=== PATIENT | female | born 1965 | race Caucasian/White ===

== ENCOUNTER 2017-09-27 03:00 | Emergency (ER) | payer OTHER ==
[~2017-09-27] VITALS: Ht 167.6 cm; Wt 56.7 kg
[~2017-09-27 03:00] MED LIST: CIPRO 250MG250 MG PO
--- NOTE | 2017-09-27 03:01 | ED GI/GU/ABDOMINAL COMPLAINT ---
History of Present Illness General Chief Complaint: Abdominal Pain/Flank Pain Stated Complaint: LEFT SIDED PAIN Source: patient Exam Limitations: no limitations Vital Signs & Intake/Output Vital Signs & Intake/Output Vital Signs Date Time Temp Pulse Resp B/P B/P Pulse O2 O2 Flow FiO2 Mean Ox Delivery Rate 09/27 0528 98.5 79 14 105/59 97 Room Air 09/27 0312 Room Air 09/27 0309 85.0 85 16 158/75 99 Allergies Coded Allergies: MDX - NUTS (NUTS) (UNKNOWN PER PT 02/11/14) MDX - Penicillin (PENICILLIN) (HIVES 02/11/14) MDX - Shellfish (SHELLFISH) ("CAN'T BREATH" 02/11/14) MDX - Tomato (TOMATO) ("SWOLLEN LIPS" 02/11/14) Reconcile Medications Ciprofloxacin (Ciprofloxacin HCl) 250 MG TABLET 1 TAB PO UTI (Reported) Ibuprofen 800 MG TABLET 1 TAB PO TID PRN pain Ondansetron (Zofran Odt) 4 MG TAB.RAPDIS 1 TAB SL TID PRN nausea Oxycodone HCl/Acetaminophen (Percocet 5-325 MG Tablet) 5 MG-325 MG TABLET 1 TAB PO 4XDP PRN PAIN six...[id number] Triage Nurses Notes Reviewed? yes ? y Is pt currently ? No Onset: Abrupt Duration: hour(s): Timing: recent history Quality/Severity: cramping, sharpness Location: left lower quadrant Radiation: back Activities at Onset: none Modifying Factors: Worsens With: vomiting. Associated Symptoms: abdominal pain, nausea/vomiting HPI: 52 yo woman in prior good health presents with left flank pain, nausea, and vomiting, along with an urge to urinate. She notes that she was seen a few days ago and was started on macrobid for symptoms consistent with a urinary tract infection. "They didn't find an infection... they just treated me based on symptoms... I'm on macrobid." She notes no fever, chills, chest pain, diaphoresis, dizziness. She is otherwise well. Past History Travel History Traveled to [place] past 21 day No Medical History Any Pertinent Medical History? see below for history Blood Disorders: margarette's Surgical History Surgical History: none Psychosocial History What is your primary language [place] Family History Hx Contributory? No Review of Systems Review of Systems Constitutional: Reports: no symptoms. EENTM: Reports: no symptoms. Respiratory: Reports: no symptoms. Cardiovascular: Reports: no symptoms. GI: Reports: no symptoms. Genitourinary: Reports: no symptoms. Musculoskeletal: Reports: no symptoms. Skin: Reports: no symptoms. Neurological/Psychological: Reports: no symptoms. Hematologic/Endocrine: Reports: no symptoms. Immunologic/Allergic: Reports: no symptoms. All Other Systems: Reviewed and Negative Physical Exam Physical Exam General Appearance: well developed/nourished, moderate distress Head: atraumatic, normal appearance Eyes: Bilateral: normal appearance. Ears, Nose, Throat, Mouth: hearing grossly normal Neck: normal inspection, supple, full range of motion Respiratory: normal breath sounds, chest non-tender, no respiratory distress, quiet respiration, lungs clear Cardiovascular: regular rate/rhythm Gastrointestinal: normal bowel sounds, soft, non-tender Back: left lower lumbar tenderness. left flank tenderness. Extremities: normal range of motion, evidence of injury Neurologic/Psych: no motor/sensory deficits, awake, alert Core Measures ACS in differential dx? No Sepsis Present: No Sepsis Focused Exam Completed? No Progress Differential Diagnosis: UTI/pyelo, kidney stone Plan of Care: Orders Procedure Date/time Status HUMAN BETA HCG SCREEN 09/27 0326 Complete URINALYSIS 09/27 0321 Complete TROPONIN LEVEL 09/27 0301 Complete LIPASE 09/27 0301 Complete HEPATIC FUNCTION PANEL 09/27 0301 Complete CBC WITHOUT DIFFERENTIAL 09/27 0301 Complete BASIC METABOLIC PANEL 09/27 0301 Complete AMYLASE 09/27 0301 Complete EKG 09/27 0301 Active Laboratory Tests 09/27/17 0400: Anion Gap 10, Estimated GFR > 60, BUN/Creatinine Ratio 26.7 H, Glucose 168 H, Calcium 9.4, Total Bilirubin 0.3, Direct Bilirubin 0.1, AST 20, ALT 16, Alkaline Phosphatase 66, Troponin I < 0.01, Total Protein 6.2 L, Albumin 3.7, Amylase 36 , Lipase 42, Total Beta HCG NEGATIVE 09/27/17 0342: Urine Color YEL, Urine Clarity HAZY H, Urine pH 5.5, Ur Specific [place] >= 1.030, Urine Protein 30 H, Urine Ketones TRACE H, Urine Nitrite NEG, Urine Bilirubin NEG, Urine Urobilinogen 0.2, Ur Leukocyte Esterase NEG, Ur Microscopic SEDIMENT EXAMINED, Urine RBC 15-25 H, Urine WBC 1-3 H, Ur Epithelial Cells MOD H, Urine Bacteria MOD H, Urine Mucus MANY H, Urine Hemoglobin LARGE H, Urine Glucose NEG 09/27/17325: CBC w Diff MAN DIFF ORDERED, RBC 4.82, MCV 85.3, MCH 28.6, RDW 13.3, MPV 11.2 H , Gran % 45.9, Lymphocytes % 42.8, Monocytes % 8.0, Eosinophils % 3.0, Basophils % 0.3, Absolute Granulocytes 5.4, Segmented Neutrophils 47, Absolute Lymphocytes 5.0 H, Lymphocytes 46, Monocytes 5, Absolute Monocytes 0.9 H, Eosinophils 2, Absolute Eosinophils 0.4, Absolute Basophils 0, Platelet Estimate ADEQUATE, Normocytic RBCs VERIFIED, Normochromic RBCs VERIFIED, PUBS MCHC 33.5 09/27/17320: Total Beta HCG Cancelled Diagnostic Imaging: Viewed by Me: CT Scan. Discussed w/RAD: CT Scan. Radiology Impression: abd/pelvic ct... 2mm punctate stone... cholelithiasis w/o cholecystitis full report below. PATIENT: VIANNEY POPE PRESENT AGE: 52 PATIENT ACCOUNT NO: [id number] : 66 LOCATION: [facility] ORDERING PHYSICIAN: Justino Guillen MD SERVICE DATE: 09/27/17 EXAM TYPE: CAT - CT ABD & PELVIS W/O IV CONTRAS EXAMINATION: CT ABDOMEN AND PELVIS WITHOUT CONTRAST CLINICAL INFORMATION: Left flank pain. COMPARISON: None TECHNIQUE: Multidetector volumetric imaging was performed from the superior aspect of the liver through the pubic symphysis. Sagittal and coronal reformatted images were obtained on the technologist's workstation. DLP: 256 mGy -cm FINDINGS: LUNG BASES: The visualized lung bases are unremarkable. LIVER, GALLBLADDER, AND BILIARY TREE: The liver is normal in size, shape, and attenuation. No focal hepatic lesion or biliary ductal dilatation is present. Cholelithiasis is noted without CT evidence of acute cholecystitis. PANCREAS: Unremarkable. SPLEEN: Unremarkable. ADRENAL GLANDS: Unremarkable. KIDNEYS AND URETERS: There is a punctate 2 mm calculus at the left ureterovesicular junction. There is subtle left perinephric and periureteral fat stranding. There is mild left pelviectasis. BLADDER: Unremarkable. GASTROINTESTINAL TRACT: The small and large bowel are unremarkable. The appendix is unremarkable. ABDOMINAL WALL: No significant hernia is appreciated. LYMPH NODES: Normal. VASCULAR: Unremarkable. PELVIC VISCERA: Unremarkable. OSSEOUS STRUCTURES: Unremarkable. IMPRESSION: 1. Punctate 2 mm calculus at the left ureterovesicular junction with subtle left perinephric and periureteral fat stranding and mild left pelviectasis. 2. Cholelithiasis without CT evidence of acute cholecystitis. DICTATED BY: Loyd Moses MD DATE/TIME DICTATED:09/27/17508 CUE WORKER:ABHILASH DATE/TIME TRANSCRIBED:09/27/17508 CONFIDENTIAL, DO NOT COPY WITHOUT APPROPRIATE AUTHORIZATION. <Electronically signed in Other Vendor System> SIGNED BY: Loyd Moses MD 09/27/17517 Initial ED EKG: short pr interval, lvh, otherwise benign. Departure Departure Disposition: HOME OR SELF CARE Condition: Stable Clinical Impression Primary Impression: Renal colic on left side Secondary Impressions: Gall stones, Kidney stones Referrals: Matias CAZARSE,Omar Faustin Departure Forms: Customer Survey General Discharge Information Prescriptions: Current Visit Scripts Ibuprofen 1 TAB PO TID PRN pain #30 TAB Oxycodone HCl/Acetaminophen (Percocet 5-325 MG Tablet) 1 TAB PO 4XDP PRN PAIN #6 TAB six...[id number] Ondansetron (Zofran Odt) 1 TAB SL TID PRN nausea #10 TAB Comments 09/27/17, 5:30am... discussed at length with the patient and her family... she is feeling better. pt to follow up with pmd and urology, and will return if not feeling better.
[2017-09-27 03:51] LABS: ABSOLUTE BASOPHIL COUNT 0 /CUMM (0.0-0.2); ABSOLUTE EOSINOPHIL COUNT 0.4 /CUMM (0.0-0.7); ABSOLUTE GRANULOCYTE CT 5.4 /CUMM (1.4-6.5); ABSOLUTE MONOCYTE COUNT 0.9 /CUMM (0.10-0.60); BASOPHIL % 0.3 % (0.0-2.0); GRANULOCYTE % 45.9 % (42.2-75.2); HEMATOCRIT 41.2 % (37-47); MEAN CORPUSCULAR HGB 28.6 PG (27.0-31.0); MEAN CORPUSCULAR HGB CONC 33.5 G/DL (33.0-37.0); MEAN CORPUSCULAR VOLUME 85.3 FL (81.0-99.0); MEAN PLATELET VOLUME 11.2 FL (7.4-10.4); PLATELET COUNT 205 /CUMM (130-400); RBC DISTRIBUTION WIDTH 13.3 % (11.5-14.5); RED BLOOD CELL CT 4.82 /CUMM (4.20-5.40); WHITE BLOOD CELL COUNT 11.7 /CUMM (4.8-10.8)
[2017-09-27] MEDS ORDERED: PERCOCET 5-3251 EACH PO (05:00)
[2017-09-27] MEDS ORDERED: IBUPROFEN800 M1 PO (05:00)
[2017-09-27] MEDS ORDERED: ZOFRAN ODT4 M1 SL (05:00)
--- NOTE | 2017-09-27 05:18 | CT SCAN REPORT ---
EXAMINATION: CT ABDOMEN AND PELVIS WITHOUT CONTRAST CLINICAL INFORMATION: Left flank pain. COMPARISON: None TECHNIQUE: Multidetector volumetric imaging was performed from the superior aspect of the liver through the pubic symphysis. Sagittal and coronal reformatted images were obtained on the technologist's workstation. DLP: 256 mGy-cm FINDINGS: LUNG BASES: The visualized lung bases are unremarkable. LIVER, GALLBLADDER, AND BILIARY TREE: The liver is normal in size, shape, and attenuation. No focal hepatic lesion or biliary ductal dilatation is present. Cholelithiasis is noted without CT evidence of acute cholecystitis. PANCREAS: Unremarkable. SPLEEN: Unremarkable. ADRENAL GLANDS: Unremarkable. KIDNEYS AND URETERS: There is a punctate 2 mm calculus at the left ureterovesicular junction. There is subtle left perinephric and periureteral fat stranding. There is mild left pelviectasis. BLADDER: Unremarkable. GASTROINTESTINAL TRACT: The small and large bowel are unremarkable. The appendix is unremarkable. ABDOMINAL WALL: No significant hernia is appreciated. LYMPH NODES: Normal. VASCULAR: Unremarkable. PELVIC VISCERA: Unremarkable. OSSEOUS STRUCTURES: Unremarkable. IMPRESSION: 1. Punctate 2 mm calculus at the left ureterovesicular junction with subtle left perinephric and periureteral fat stranding and mild left pelviectasis. 2. Cholelithiasis without CT evidence of acute cholecystitis.
[2017-09-27 05:28] VITALS: BP 105/59
== END 2017-09-27 05:48 ==
LOC: ERH 03:00
PROVIDERS: Pediatrics
DX: N23 Unspecified renal colic (principal); N20.0 Calculus of kidney; K80.20 Calculus of gallbladder without cholecystitis without obstruction
CPT/HCPCS: 74176; 81001; 93005; 93010; 96374; 96375; J1885; J2405